=== PATIENT | female | born 1990 | race Caucasian/White ===

== ENCOUNTER 2023-12-02 00:54 | Inpatient (IN) ==
[2023-12-02] MEDS ORDERED: Oxytocin in LR 20,000 MILLI.UNIT/1,000 ML BAG IV ONE (01:41)
[2023-12-02] MEDS: Lidocaine 1% VIAL 10 MG/ML 30 ML VIAL INJ PRN (01:56)
[2023-12-02 01:57] LABS: ABS Lymphocytes 2.6 10^3/uL (1.0-4.8); ABS Monocytes 0.8 10^3/uL (0.0-0.9); ABS Neutrophils 6.4 10^3/uL (1.5-7.6); Eosinophil % 0.3 %; Hematocrit 34.6 % (35-45); Hemoglobin 12.1 g/dL (11.5-14.3); Lymphocyte % 26.1 %; Mean Corpuscular Hemoglobin 38.2 pg (27-33); Mean Corpuscular Volume 109.1 fL (80-97); Mean Platelet Volume 7.2 fL (7.5-11.2); Platelet Count 146 10^3/uL (150-450); Red Blood Count 3.17 10^6/uL (3.63-4.92); Red Cell Distribution Width 14.5 % (12-17); White Blood Count 9.9 10^3/uL (3.8-11.8)
[2023-12-02] MEDS: Oxytocin in LR 20,000 MILLI.UNIT/1,000 ML BAG IV SCH (01:57)
[2023-12-02 02:15] LABS: Urine Benzodiazepine Screen None Detected (None Detect); Urine Cannabinoids Screen None Detected (None Detect); Urine Opiates Screen None Detected (None Detect)
[2023-12-02] MEDS ORDERED: Glycerin ADULT 2.4 gm SUPP PR PRN (02:15)
[2023-12-02] MEDS ORDERED: Lactated Ringers 1000 ml BAG 1,000 ML IV SCH (03:00)
[2023-12-02] MEDS: Dibucaine 1% OINT 28.35 GM TUBE PR PRN (03:32)
[2023-12-02] MEDS: Witch Hazel PAD JAR TOPICAL PRN (03:32)
[2023-12-02 04:47] LABS: Influenza A Molecular Negative (Negative); Influenza B Molecular Negative (Negative)
[2023-12-02 07:00] LABS: ABS Lymphocytes 1.7 10^3/uL (1.0-4.8); ABS Monocytes 0.9 10^3/uL (0.0-0.9); ABS Neutrophils 12.5 10^3/uL (1.5-7.6); ABS Nucleated RBC 0.01 10^3/ul; Eosinophil % 0.1 %; Hemoglobin 10.4 g/dL (11.5-14.3); Lymphocyte % 11.3 %; Mean Corpuscular Hemoglobin 37.9 pg (27-33); Mean Corpuscular Hgb Conc 34.7 g/dL (31-36); Mean Corpuscular Volume 109.2 fL (80-97); Mean Platelet Volume 7.2 fL (7.5-11.2); Platelet Count 121 10^3/uL (150-450); Red Blood Count 2.75 10^6/uL (3.63-4.92); Red Cell Distribution Width 14.4 % (12-17); White Blood Count 15.2 10^3/uL (3.8-11.8)
[2023-12-02] MEDS: Lactated Ringers 1000 ml BAG 1,000 ML IV SCH (16:55)
[2023-12-02] MEDS: Buffered Lidocaine 1% SYRIN 1 ml INTRADERM ONE (16:55)
[2023-12-02] MEDS: Lactated Ringers 1000 ml BAG 1,000 ML IV ONE (16:55)
[2023-12-02] MEDS: Enoxaparin 30 MG/0.3 ML SYR SUBCUT SCH (19:37)
[2023-12-04 07:29] VITALS: BP 97/50
== END 2023-12-04 12:19 | disposition home or self-care (01) | DRG 560 ==
LOC: MCHOBOUT 00:54 → MCHOB 01:29
PROVIDERS: ADMIT Obstetrics & Gynecology; ATTEND Obstetrics & Gynecology